=== PATIENT | female | born 1965 | race Hispanic/Latino ===

== ENCOUNTER 2017-10-12 16:54 | Emergency (ER) | payer MEDICARE ==
[2017-10-12 17:16] VITALS: BP 125/84
--- NOTE | 2017-10-12 17:50 | Emergency Department Report ---
ED General Adult HPI - General Chief complaint: Pain General Stated complaint: BODY PAIN Time Seen by Provider: 10/12/17 17:38 Source: patient Mode of arrival: Ambulatory Limitations: No Limitations - History of Present Illness Initial comments: Patient is a 52-year-old female who is presenting with multiple complaints. Patient states she has body aches all over but she states this is a chronic issue she had this off and on for over a year. Patient also states that she has had headache she states she's been walking quite a bit because this overall mode of transportation. The patient denies any fevers chills nausea vomiting. Patient also states she has cancer but cannot tell me what type he states that she was told by a nurse several years ago she has cancer. Patient states her head only hurts when she cries. - Related Data Home Medications Medication Instructions Recorded Confirmed Last Taken Mv,Aba,Min/Iron/Folic Acid/Lut 1 each PO QDAY 10/19/14 02/25/16 Unknown [Complete Multi Tablet] Metoprolol [Lopressor] 25 mg PO BID 12/24/15 02/25/16 Unknown diphenhydrAMINE [Benadryl CAP] 50 mg PO QHS 12/24/15 02/25/16 Unknown Previous Rx's Medication Instructions Recorded Last Taken Type Ondansetron [Zofran Odt] 4 mg PO Q8HR PRN #20 tab.rapdis 03/05/16 Unknown Rx hydrOXYzine PAMOATE [Vistaril] 50 mg PO Q6HR PRN #30 capsule 03/05/16 Unknown Rx Ketorolac [Toradol] 10 mg PO Q6H PRN #10 tablet 10/12/17 Unknown Rx Allergies Allergy/AdvReac Type Severity Reaction Status Date / Time Sulfa (Sulfonamide Allergy Hives Verified 03/04/16 14:16 Antibiotics) codeine AdvReac HALLUCINATI Verified 03/04/16 14:16 ONS ED Review of Systems ROS: Stated complaint: BODY PAIN Other details as noted in HPI Comment: All other systems reviewed and negative ED Past Medical Hx - Past Medical History Previous Medical History?: No Hx GERD: Yes Hx Psychiatric Treatment: Yes (anxiety, panic attacks/ SCHIZOEFFECTIVE DISORDER) Additional medical history: Anxiety - Surgical History Past Surgical History?: Yes Additional Surgical History: tubal ligation. endometrial surgery. sinus surgery - Social History Smoking Status: Never Smoker Substance Use Type: None - Medications Home Medications: Home Medications Medication Instructions Recorded Confirmed Last Taken Type Mv,Aba,Min/Iron/Folic Acid/Lut 1 each PO QDAY 10/19/14 02/25/16 Unknown History [Complete Multi Tablet] Metoprolol [Lopressor] 25 mg PO BID 12/24/15 02/25/16 Unknown History diphenhydrAMINE [Benadryl CAP] 50 mg PO QHS 12/24/15 02/25/16 Unknown History Ondansetron [Zofran Odt] 4 mg PO Q8HR PRN #20 tab.rapdis 03/05/16 Unknown Rx hydrOXYzine PAMOATE [Vistaril] 50 mg PO Q6HR PRN #30 capsule 03/05/16 Unknown Rx Ketorolac [Toradol] 10 mg PO Q6H PRN #10 tablet 10/12/17 Unknown Rx ED Physical Exam - General Limitations: No Limitations General appearance: alert, in no apparent distress - Head Head exam: Present: atraumatic, normocephalic - Eye Eye exam: Present: normal appearance - ENT ENT exam: Present: mucous membranes moist - Neck Neck exam: Present: normal inspection - Respiratory Respiratory exam: Present: normal lung sounds bilaterally. Absent: respiratory distress, wheezes, rales, rhonchi - Cardiovascular Cardiovascular Exam: Present: regular rate, normal rhythm. Absent: systolic murmur, diastolic murmur, rubs, gallop - GI/Abdominal GI/Abdominal exam: Present: soft, normal bowel sounds. Absent: distended, tenderness, guarding, rebound - Extremities Exam Extremities exam: Present: normal inspection - Back Exam Back exam: Present: normal inspection - Neurological Exam Neurological exam: Present: alert, oriented X3 - Psychiatric Psychiatric exam: Present: normal affect, normal mood - Skin Skin exam: Present: warm, dry, intact, normal color. Absent: rash ED Course Vital Signs 10/12/17 17:12 Temperature 98.4 F Pulse Rate 99 H Respiratory 16 Rate Blood Pressure 125/84 O2 Sat by Pulse 99 Oximetry ED Medical Decision Making - Medical Decision Making Patient is a 52-year-old female presenting with body aches. Patient was falling asleep in triage and I am not comfortable giving narcotics for this patient. Patient states she is allergic to Motrin but I am going to start her on Toradol for several days. Patient did not have motion on her allergy list I believe the patient may be drug seeking. Patient states Motrin causes her to have shortness of breath Critical care attestation.: If time is entered above; I have spent that time in minutes in the direct care of this critically ill patient, excluding procedure time. ED Disposition Clinical Impression: Myalgia Disposition: - TO HOME OR SELFCARE Is pt being admited?: No Does the pt Need Aspirin: No Condition: Stable Instructions: Musculoskeletal Pain (ED) Prescriptions: Ketorolac [Toradol] 10 mg PO Q6H PRN #10 tablet PRN Reason: Pain Referrals: PRIMARY CARE, [Primary Care Provider] - 3-5 Days
== END 2017-10-12 17:56 | disposition home or self-care (01) ==
LOC: ED 16:54
DX: M79.1 Myalgia (principal); K21.9 Gastro-esophageal reflux disease without esophagitis; F41.9 Anxiety disorder, unspecified; F25.9 Schizoaffective disorder, unspecified; Z98.51 Tubal ligation status; Z88.5 Allergy status to narcotic agent
CPT/HCPCS: 99282

== ENCOUNTER 2021-06-17 10:39 | Emergency (ER) | payer MEDICARE, MEDICAID ==
[2021-06-17] MEDS ORDERED: FAMOTIDINE 20 MG/2 ML INJ IV ONE (11:41)
[2021-06-17] MEDS ORDERED: ONDANSETRON 4 MG/2 ML INJ IV ONE (11:41)
[2021-06-17] MEDS ORDERED: SODIUM CHLORIDE 0.9% 1000 ML 1,000 ML IV ONE (11:41)
[2021-06-17 11:51] LABS: Alanine Aminotransferase 137 units/L (7-56); BUN/Creatinine Ratio 9; Blood Urea Nitrogen 12 mg/dL (7-17); Calcium 9.8 mg/dL (8.4-10.2); Hemolysis Index 87
[2021-06-17 12:06] LABS: Bilirubin,Direct < 0.2 mg/dL (0-0.2)
[2021-06-17 14:38] VITALS: BP 133/70
[2021-06-17 14:43] LABS: Basophils # (Auto) 0.1 K/mm3 (0.0-0.1); Basophils % (Auto) 0.7 % (0.0-1.8); Eosinophils % (Auto) 0.2 % (0.0-4.3); Hematocrit 40.5 % (30.3-42.9); Hemoglobin 13.3 gm/dl (10.1-14.3); Lymphocytes # (Auto) 1.7 K/mm3 (1.2-5.4); Lymphocytes % (Auto) 18.9 % (13.4-35.0); Mean Corpuscular HGB Conc 33 % (30-34); Mean Corpuscular Volume 91 fl (79-97); Monocytes # (Auto) 0.7 K/mm3 (0.0-0.8); Platelet Count 152 K/mm3 (140-440); Red Blood Count 4.45 M/mm3 (3.65-5.03); Red Cell Distribution Width 14.2 % (13.2-15.2)
[2021-06-17 15:03] LABS: Bacteria,Urine 1+ /HPF (Negative); Bilirubin,Urine NEG (Negative); Blood,Urine SM (Negative); Color,Urine Yellow (Yellow); Hyaline Casts,Urine 3 /LPF; Mucus,Urine FEW /HPF; Protein,Urine <15 mg/dL mg/dL (Negative); Urobilinogen,Urine < 2.0 mg/dL (<2.0)
[2021-06-17 15:06] LABS: Amphetamine Screen,Urine Negative; Benzodiazepines Screen,Urine Negative; Cannabinoid Screen,Urine Negative; Cocaine Screen,Urine Negative; Methadone Screen,Urine Negative; Opiate Screen,Urine Negative
[2021-06-17] MEDS ORDERED: ACETAMINOPHEN 325 MG TAB PO ONE (18:43)
== END 2021-06-17 20:30 | disposition home or self-care (01) ==
LOC: ED 10:39
DX: T18.2XXA Foreign body in stomach, initial encounter (principal); K76.0 Fatty (change of) liver, not elsewhere classified; K52.9 Noninfective gastroenteritis and colitis, unspecified; X58.XXXA Exposure to other specified factors, initial encounter; Y93.89 Activity, other specified; Y92.89 Other specified places as the place of occurrence of the external cause; Y99.8 Other external cause status
CPT/HCPCS: 36415; 74177; 76700; 80048; 80076; 80307; 81001; 83690; 85025; 96361; 96374; 96375; 99284; J2405; J3490; J7030; Q9967; Q0162